=== PATIENT | female | born 1980 | race Caucasian/White ===

== ENCOUNTER → 2024-12-18 | Outpatient (CLI) | payer BC ==
--- NOTE | 2024-12-18 10:49 | MM ---
Reason for Exam: Screening (asymptomatic). Last mammogram was performed 1 year(s) and 5 month(s) ago. Patient History: Menarche at age 14. First Full-Term at age 28. Patient has history of breast feeding. Patient used Hormonal Contraceptives for 10 years. Last menstrual period: 11/29/2024 Risk Values: Thuy 5 year model risk: 0.7%. NCI Lifetime model risk: 10.9%. Prior Study Comparison: 07/06/2023 Bilateral MG 3D screening mammo w/cad, [facility] . Tissue Density: The breasts are heterogeneously dense, which may obscure small masses. Findings: Analyzed By CAD. Right breast: There is no suspicious group of microcalcifications or new suspicious mass. Left breast: Asymmetry left breast anterior depth on CC view 2.0 cm from the nipple. Measuring 4 mm. Overall Assessment: Incomplete: need additional imaging evaluation, BI-RAD 0 Management: Diagnostic Breast Ultrasound of the left breast. [facility] will attempt to contact patient to return for supplemental views and ultrasound if indicated. Patient should continue monthly self-breast exams. A clinical breast exam by your physician is recommended on an annual basis. This exam should not preclude additional follow-up of suspicious palpable abnormalities. Note on Thuy scores and lifetime risk: 1. A Thuy score greater than 3% is considered moderate risk. If this is the case, consider specialist referral to assess eligibility for a risk reducing agent. 2. If overall lifetime risk for the development of breast cancer is 20% or higher, the patient may qualify for future screening with alternating mammogram and breast MRI. [facility], , 12/18/2024 10:46 AM. Electronically signed and approved by: Harpreet Junior DO
== END | disposition home or self-care (01) ==
LOC: RADMAMWWP 08:46
PROVIDERS: ATTEND Family Medicine
DX: Z12.31 Encounter for screening mammogram for malignant neoplasm of breast (principal); R92.333 Mammographic heterogeneous density, bilateral breasts
CPT/HCPCS: 77063; 77067

== ENCOUNTER → 2024-12-24 | Outpatient (CLI) | payer BC ==
--- NOTE | 2024-12-24 09:01 | USB ---
Reason for Exam: Additional evaluation requested from abnormal screening. Patient History: Menarche at age 14. First Full-Term at age 28. Patient has history of breast feeding. Patient used Hormonal Contraceptives for 10 years. Risk Values: Thuy 5 year model risk: 0.7%. NCI Lifetime model risk: 10.9%. Technique: Method: Whole Breast Handheld. Prior Study Comparison: 07/06/2023 Bilateral MG 3D screening mammo w/cad, [facility] . 12/18/2024 Bilateral MG 3D screening mammo w/cad, [facility]. Findings: The whole breast of the left breast, the axilla of the left breast and the retroareolar of the left breast were scanned. Targeted ultrasound shows a 6 x 4 x 6 mm thin-walled cyst at 12:00 position 2 cm distance from nipple likely corresponding to new mammogram abnormality. Benign-appearing subcentimeter lymph node is seen in the left axilla. Overall Assessment: Benign, BI-RAD 2 Management: Screening Mammogram of both breasts in 1 year. A clinical breast exam by your physician is recommended on an annual basis and results should be correlated with mammographic findings. This exam should not preclude additional follow-up of suspicious palpable abnormalities. Results were given to the patient verbally at the time of exam. [facility], , 12/24/2024 8:58 AM. Electronically signed and approved by: Isaak Bunch M.D.
== END | disposition home or self-care (01) ==
LOC: RADUSWWP 08:06
PROVIDERS: ATTEND Family Medicine
DX: R92.8 Other abnormal and inconclusive findings on diagnostic imaging of breast (principal)